=== PATIENT | male | born 1950 | race Caucasian/White ===

== ENCOUNTER 2017-03-20 03:48 | Inpatient (IN) | payer MEDICARE ==
[~2017-03-20] VITALS: Ht 190.5 cm; Wt 111.6 kg
[~2017-03-20 03:48] MED LIST: 24HOUR ALLERGY10 MG PO; ADVAIR HFA 115-12 GM INH; ASPIR 8181 MG PO; COREG12.5 MG PO; ELIQUIS5 MG PO; FLONASE ALLERG9.9 ML NS; LASIX20 MG PO; LIPITOR10 MG PO; LISINOPRIL10 MG PO; NITROSTAT0.4 MG SL; POTASSIUM CHLO20 ME1 PO; PREDNISONE20 MG PO; PROAIR HFA8.5 GM INH; TORSEMIDE20 MG PO; VASOTEC5 MG PO
[2017-03-20] MEDS ORDERED: PROAIR HFA8.5 GM INH (10:02)
[2017-03-20] MEDS ORDERED: COREG12.5 MG PO (10:08)
--- NOTE | 2017-03-20 20:39 | EKG ---
[facility] [address] [facility] [address] [place], [place] [address] Signed Sinus tachycardia with premature atrial complexes with aberrant conduction Possible Left atrial enlargement Left axis deviation Left bundle branch block Abnormal ECG No previous ECGs available Confirmed by BEHZAD REYNAGA MD ([id number]) on 03/20/2017 8:39:39 PM Electronically Signed By: BEHZAD REYNAGA MD 03/20/17 2039 PATIENT NAME: EUGENE BRAMBILA [facility] Electrocardiogram DATE OF : 50 PHYSICIAN: BEHZAD REYNAGA MD REPORT #: [id number] REPORT IS CONFIDENTIAL AND NOT TO BE RELEASED WITHOUT AUTHORIZATION
[2017-03-22] MEDS ORDERED: POTASSIUM CHLO20 ME1 PO (10:33)
[2017-03-22] MEDS ORDERED: TORSEMIDE20 MG PO (10:34)
[2017-09-05] MEDS ORDERED: ENTRESTO 24 MG1 EACH PO (11:44)
== END 2017-03-22 10:50 | disposition home or self-care (01) | DRG 291 ==
LOC: ED 03:48 → MS 03:58
PROVIDERS: ADMIT Internal Medicine
DX: I13.0 Hypertensive heart and chronic kidney disease with heart failure and stage 1 through stage 4 chronic kidney disease, or unspecified chronic kidney disease (principal); I50.23 Acute on chronic systolic (congestive) heart failure; J96.01 Acute respiratory failure with hypoxia; N18.3 Chronic kidney disease, stage 3 (moderate); I25.10 Atherosclerotic heart disease of native coronary artery without angina pectoris; J44.9 Chronic obstructive pulmonary disease, unspecified; I48.0 Paroxysmal atrial fibrillation; R59.0 Localized enlarged lymph nodes; E78.5 Hyperlipidemia, unspecified; J30.89 Other allergic rhinitis; Z86.711 Personal history of pulmonary embolism; Z79.82 Long term (current) use of aspirin; Z88.8 Allergy status to other drugs, medicaments and biological substances; Z87.891 Personal history of nicotine dependence; Z95.1 Presence of aortocoronary bypass graft; Z91.010 Allergy to peanuts; Z79.899 Other long term (current) drug therapy; Z79.51 Long term (current) use of inhaled steroids
CPT/HCPCS: 36415; 71010; 71260; 80048; 80053; 80069; 83735; 83880; 84484; 85025; 93005; 93010; 94640; 94760; 94762; Q9967

== ENCOUNTER 2017-03-23 10:28 | Observation (INO) | payer MEDICARE ==
[~2017-03-23] VITALS: Ht 190.5 cm; Wt 107.8 kg
--- NOTE | 2017-03-23 13:55 | NUR ---
ULTRASOUND IN THE ROOM FOR AN ECHO AT THIS TIME, PATIENT GIVEN SCHEDULED LASIX AND KCL AT THIS TIME. LUNCH ORDERED.
--- NOTE | 2017-03-23 14:40 | NUR ---
PATIENT UP TO THE SIDE OF THE BED EATING HIS LUNCH, PATIENT SATURATIONS ON RA 95% BUT C/O SOB. PATIENT DENIES ANY PAIN AT THIS TIME.
--- NOTE | 2017-03-23 15:31 | NUR ---
tele #1 remains on the patient at this time. patient resting in bed with hob slightly elevated.
--- NOTE | 2017-03-23 16:20 | NUR ---
PATIENT RESTING WITH EYES CLOSED, NO S/S OF RESPIRATORY DISTRESS.
--- NOTE | 2017-03-23 17:23 | NUR ---
MED REC COMPLETE--READMIT
--- NOTE | 2017-03-23 18:39 | NUR ---
PATIENT UP TO THE BATHROOM TO VOID, 1600MLS EMPTIED OF CLEAR YELLOW URINE. PATIENT AMBULATED TO THE NURSES STATION AND BACK ON RA WITHOUT ANY SHORTNESS OF BREATH
--- NOTE | 2017-03-23 19:36 | NUR ---
RECIVED REPORT FROM DAY SHIFT RN. PATIENT IS RESTINGI N BED WITH EYES CLOSED. BREATHING IS EVEN AND UNLABORED, RR 17. CALL LIGHT IN REACH.
--- NOTE | 2017-03-23 20:27 | NUR ---
PATIENT ASSESMENT COMPLETED. PATIENT DENIES ANY PAIN OR SOB. PATIENTS EVENING MEDICATIONS GIVEN PER ORDER. PATIENT EDUCATED ON HIS FLUID RESTRICTION. PATIENT EXPRESSES IRRITATION WITH FLUID RESTRICTION. PATIENT DOES COMPLY. PATIENT IS ON TELE #1 HR 78 AND NSR. PATIENT DENIES ANY FURTEHR NEEDS. PATIENT IS INDEPENDENT IN THE ROOM AND IS STEADY ON HIS FEET. CALL LIGHT IS WITHIN REACH.
--- NOTE | 2017-03-23 20:37 | EKG ---
[facility] [address] [facility] [place] [address] Signed Sinus rhythm with occasional premature ventricular complexes Possible Left atrial enlargement Left axis deviation Nonspecific intraventricular conduction delay T wave abnormality, consider lateral ischemia Abnormal ECG When compared with ECG of 20-MAR-2017 04:02, premature ventricular complexes are now present aberrant conduction is no longer present Confirmed by BEHZAD REYNAGA MD ([id number]) on 03/23/2017 8:37:26 PM Electronically Signed By: BEHZAD REYNAGA MD 03/23/17 2037 PATIENT NAME: EUGENE BRAMBILA [facility] Electrocardiogram DATE OF : 50 PHYSICIAN: BEHZAD REYNAGA MD REPORT #: [id number] REPORT IS CONFIDENTIAL AND NOT TO BE RELEASED WITHOUT AUTHORIZATION
--- NOTE | 2017-03-23 21:13 | NUR ---
PATIENT IS UP AMBULATING IN THE HALLWAY. PATIENT DENIES ANY SOB. PATIENT WAS BALE TO AMBULATE X2 LAPS. PATIENT IS NOW BACK IN BED WATCHING TV.
--- NOTE | 2017-03-23 23:12 | NUR ---
PATIENT IS RESTING IN BED WATCHING TV. PATIENT DENIES ANY NEEDS AT THIS TIME. TELE #1 NSR, HR 84. CALL LIGHT IS WITHIN REACH.
--- NOTE | 2017-03-24 00:24 | NUR ---
PATIENT IS RESTING IN BED WITH EYES CLOSED, RR 18. PATIENT IS ON TELE #1 HR 73, NSR. CALL LIGHT IN REACH.
--- NOTE | 2017-03-24 02:11 | NUR ---
PATIENT UP AMBULATING IN THE HALLWAY. PATIENT WAS ABLE TO COMPLETED X3 LAPS. PATIENT DENIES ANY SOB. PATIENT REMAINS ON TELE #1 HR 80, NSR. PATIENT GIVEN PUDDING PER REQUEST. PATIENT IS NOW BACK IN BED RESTING AND WATCHING TV.
--- NOTE | 2017-03-24 04:45 | NUR ---
PATIENT IS RESTING IN BED WITH EYES CLSOED. BREATHING IS EVEN AND UNLABORED, RR 17. PATIENT IS ON TELE #1, NSR HR 73
--- NOTE | 2017-03-24 05:26 | NUR ---
PATIENT CALLED AND REQUESTED WATER. PATIENT BROUGHT 150ML BY SAW SUPERINTENDENT. PATIENT STATES "I WOULD LIKE A FULL GLASS OF WATER" PATIENT EDUCATED BY SAW SUPERINTENDENT THAT HE IS ON A FLUID RESTRICTION. PATIENT STATES "I HAVE NOT HAD ANY WATER SINCE MIDNIGHT" SAW SUPERINTENDENT NOTIFIED THAT PATIENT HS DESCREPANCIE INTAKE OF WATER. PATIENT EDUCATED ON HIS FLUID RESTRICTION. PATIENT STATES "I HAVE NOT HAD ANY WATER SINCE MIDINIGHT" PATIENT HAS CONSUMED 150ML SINCE MIDINIGHT AND SAW SUPERINTENDENT BROUGHT PATIENT 150ML, BRINGING HIS TOTAL TO 300ML SINCE MIDNIGHT. PATIENT DISAGREES. PATIENT IS NOW UPSET AND STATES "YOU ARE A DAMN LIAR, YOU NEVER BROUGHT ME WATER AND YOU TOOK AN HOUR TO GET ME MY PUDDING EARLIER" EXPLAINED TO THE PATIENT THAT HE WAS BROUGHT 150ML EARLIER AND THAT I NO NOT HAVE KEYS TO THE KITCHEN TO GET PUDDING ONLY THE AIRPLANE COVER MAKER HAS KEYS. PATIENT ONCE AGAIN STATES "YOU ARE A DAMN LIAR, I WANT YOU TO DO THINGS THE RIGHT WAY" PATIENT OFFERED MORE WATER BUT EDUCATED ON THE FACT THAT HE IS ONLY ALLOWED 1500 THROUGHOUT THE DAY. PATIENT STATES "JUST GET OUT" APOLOGIZED TO PATIENT THAT HE FEELS THIS WAY.
--- NOTE | 2017-03-24 05:46 | NUR ---
PATIENT RESTED ON AND OFF THROUGHTOUT THE SHIFT. PATIENT DENIED ANY PAIN OR SOB. PATIENT AMBUALTED THE HALLWAYS MULTIPLE TIMES THROUGHTOUT THE NIGHT WITH NO COMPLAINTS OF SOB. PATIENT IS INDEPENDENT IN THE ROOM AND THE HALLWAYS AND IS STEADY ON HIS FEET. JO IS ON TELE #1 AND HAS REMAIND IN NSR, HR IN THE 80'S. PATIENT IS ON A CARDIAC DIET AND IS TOLERATING IT WELL. PATIENT IS ON A 1500ML FLUID RESTRICTION AND IS NON COMPLAINT AND WHEN EDUCATED ON RESTRICTION BECOMES AGITATED. PATIENT IS AAOX3. PATIENT IS SL.
--- NOTE | 2017-03-24 06:37 | NUR ---
PATIENTS VITALS TAKEN AND RECORDED. PATIENTS DAILY WEIGHT TAKEN AND RECORDED. PATIENT IS STILL UPSET ABOUT FLUID RESTRICTION. PATIENT DENIES ANY NEEDS AT THIS TIME. CALL LIGHT IN REACH.
--- NOTE | 2017-03-24 07:00 | NUR ---
BEDSIDE HANDOFF REPORT RECEIVED FROM DIRECTOR CLIENT RN. PT RESTING IN BED. PT REQUESTING INCREASED ORAL FLUIDS, DISCUSSED FLUID RESTRICTION WITH PT. PT DENIES NEEDS AT THIS TIME.
--- NOTE | 2017-03-24 08:30 | NUR ---
PT SITTING ON EDGE OF BED. PT LUNG SOUNDS CLEAR, ON ROOM AIR, PT STATES BRETAHING HAS IMPROVED. PT HR IRREGULAR. PT BOWEL TONES ACTIVE, DENIES NAUSEA, TOLERATING CARDIAC DIET. PT LEGS WITH TRACE EDEMA, PULSES STRONG. PT DENIES PAIN. PT INDEPENDENT IN ROOM AND NOGUERA, VOIDING QS. PT GIVEN IV LASIX 80 MG. PT EDUCATION ON FLUID RESTRICTION, PROVIDED WITH 200 ML WATER FOR AM FREE WATER. PT REQUESTING TO SHOWER. DISCUSSED PLAN OF CARE WITH PT.
--- NOTE | 2017-03-24 10:16 | NUR ---
PT HAS SHOWERED AND IS NOW RESTING IN BED TRYING TO NAP. PT'S BLOOD PRESSURE WAS LOW, NURSE AWARE
--- NOTE | 2017-03-24 11:00 | NUR ---
PT BLOOD PRESSURE 97/64, HR 77, PT COMPLAINT OF FEELING LIGHTHEADED, RESTING IN BED. MD NOTIFIED, ORDER TO CONTINUE TO MONITOR AND HAVE PT CONTINUE RESTING.
--- NOTE | 2017-03-24 11:18 | NUR ---
PT REQUESTING WATER OR SODA, HAS MET FREE WATER LIMIT FOR AM, DISCUSSED WITH PT. PT COMPLAINT OF HYPOTENSION, DISCUSSED AND ENCOURAGED PT TO REST IN BED. PT PROVIDED WITH HARD CANDY.
--- NOTE | 2017-03-24 14:23 | NUR ---
PT IS LYING IN BED RESTING WITH EYES CLOSED, RESPERATIONS EVEN. PT HDRANK HIS 300ML WITH LUNCH AND HAD HIS 200ML OF FREE WATER. PT CAN HAVE NO MORE FLUIDS UNTIL DINNER.
--- NOTE | 2017-03-24 14:30 | NUR ---
ASSUMED CARE. REPORT RECEIVED FROM RODRIGO HO. PT SITTING ON EDGE OF BED LOOKING AT PRINT OUT OF VITAL SIGNS. TALKED WITH PT REGARDING FLUID RESTRICTION AND REASON FOR IT. PT DISAGREES WITH PLAN OF CARE. STATES FEELS DEHYDRATED. RN ASSURES PT THAT MD MONITORING HYDRATION STATUS. PT GIVEN SHERBET PER REQUEST. DENIES NEEDS AT THIS TIME. CALL LIGHT IN REACH.
--- NOTE | 2017-03-24 17:26 | NUR ---
PT INDEPENDANT IN ROOM/HALLS. TELE DC'D. CONTINUOUS EDUCATION AND REINFORCEMENT ON FLUID RESTRICTION. SL'D. LASIX. LABS IMPROVING.
--- NOTE | 2017-03-24 18:17 | NUR ---
PT WOKE UP FOR VITALS THEN FELL BACK ASLEEP, RESPERATIONS EVEN
--- NOTE | 2017-03-24 20:00 | NUR ---
RECEIVED REPORT AT 1900. PT WAS IN THE BATHROOM.
--- NOTE | 2017-03-24 22:00 | NUR ---
ALL LOBES ARE CLEAR. PT STATED THAT HE IS FEELING BETTER OVERALL. PT HAS BEEN WALKING THE HALLWAY WITHOUT ANY SOB. PT HAD NO ISSUES WITH HIS FLUID RESTRICTION. NO LOWER EXTREMETY EDEMA NOTED AT THIS TIME. PT HAS A LOT OF QUESTIONS IN REGARDS TO HIS HEALTH AND HOW TO MANAGE IT. I TOLD HIM TO TALK TO MD REYNAGA ABOUT THE SPECIFICS IN REGARDS TO WEIGHT MANAGEMENT, FLUID INTAKE, BP AND MEDICATION. PT AT THIS TIME IS AWAKE IN HIS ROOM
--- NOTE | 2017-03-25 01:43 | NUR ---
PT IS SLEEPING AT THIS TIME.
--- NOTE | 2017-03-25 03:51 | NUR ---
PT IS AWAKE AND WALKING THE HALLWAY.
--- NOTE | 2017-03-25 05:37 | NUR ---
PT OVERALL HAD A UNEVENTFUL NIGHT. PT SLEPT SOME OF THE NIGHT BUT WAS UP MOST OF THE TIME WALKING THE HALLWAY AND SITTING IN HIS ROOM. V/S WERE WNL. ALL LOBES ARE CLEAR AND PT OVERALL FEELS STRONGER. NO NEW ISSUES NOTED FOR THIS PT
--- NOTE | 2017-03-25 07:30 | NUR ---
PATIENT AWAKE, ALERT AND ORIENTED. PATIENT REQUESTED HER LABS THIS AM, AMMONIA LEVEL WAS 67 THIS AM. GLUCOSE CHECK THIS AM REQUIRED INSULIN, 2 UNITS GIVEN SQ.
--- NOTE | 2017-03-25 08:00 | NUR ---
PATIENT UP AMBULATING IN THE HALLWAY WITH NO C/O SOB. HE REMAINS ON RA WITH NO C/O PAIN. LUNGS ARE CLEAR THIS AM AND EDEMA IS DECREASED IN HIS LEGS. PATIENT AM ASSESSMENT COMPLETE AT THIS TIME.
--- NOTE | 2017-03-25 08:40 | NUR ---
PATIENT SITTING UP IN BED EATING BREAKFAST AT THIS TIME. NO OTHER REQUESTS.
[2017-03-25] MEDS ORDERED: LISINOPRIL10 MG PO (10:10)
--- NOTE | 2017-03-25 10:23 | NUR ---
DOCTOR REYNAGA IN THE ROOM TO SEE THE PATIENT, IV IN THE LEFT WRIST DC'D TIP INTACT NO REDDNESS OR SWELLING NOTED.
[2017-09-05] MEDS ORDERED: ENTRESTO 24 MG1 EACH PO (11:44)
== END 2017-03-25 10:35 | disposition home or self-care (01) ==
LOC: ED 10:28 → MS 10:39
PROVIDERS: ADMIT Internal Medicine
DX: I50.23 Acute on chronic systolic (congestive) heart failure (principal); I25.10 Atherosclerotic heart disease of native coronary artery without angina pectoris; Z95.1 Presence of aortocoronary bypass graft; I10 Essential (primary) hypertension; I48.0 Paroxysmal atrial fibrillation; J44.9 Chronic obstructive pulmonary disease, unspecified; R59.0 Localized enlarged lymph nodes; Z88.8 Allergy status to other drugs, medicaments and biological substances; Z86.711 Personal history of pulmonary embolism; Z79.82 Long term (current) use of aspirin; Z79.51 Long term (current) use of inhaled steroids; Z79.899 Other long term (current) drug therapy
CPT/HCPCS: 36415; 71020; 80048; 80053; 83735; 83880; 84484; 85025; 87070; 87077; 87186; 87205; 93005; 93010; 93306; 94640; 96372; 96374; 96376; 99285; G0378; J1650

== ENCOUNTER 2017-07-04 14:04 | Emergency (ER) | payer MEDICARE ==
[~2017-07-04] VITALS: Ht 190.5 cm; Wt 107.9 kg
[2017-07-04] MEDS ORDERED: DILT-XR120 MG PO (17:18)
[2017-09-05] MEDS ORDERED: ENTRESTO 24 MG1 EACH PO (11:44)
== END 2017-07-04 17:31 | disposition home or self-care (01) ==
LOC: ED 14:04
DX: R07.89 Other chest pain (principal); R00.0 Tachycardia, unspecified; J44.9 Chronic obstructive pulmonary disease, unspecified; I50.9 Heart failure, unspecified; Z88.8 Allergy status to other drugs, medicaments and biological substances; Z91.010 Allergy to peanuts; Z79.899 Other long term (current) drug therapy; Z79.82 Long term (current) use of aspirin
CPT/HCPCS: 71260; 80053; 81001; 84484; 85025; 99284; Q9967

== ENCOUNTER 2017-08-20 09:17 | Inpatient (IN) | payer MEDICARE ==
[~2017-08-20] VITALS: Ht 190.5 cm; Wt 114.3 kg
[~2017-08-20 09:17] MED LIST changes: +DILT-XR120 MG PO
[2017-08-20] MEDS ORDERED: ZITHROMAX500 MG PO (09:31)
[2017-08-20] MEDS ORDERED: ENTRESTO 24 MG1 EACH PO (09:31)
--- NOTE | 2017-08-21 14:26 | EKG ---
[facility] [address] [place] [address] Signed Supraventricular tachycardia possibly atrial flutter with 2:1 AV block. Nonspecific intraventricular block T wave abnormality, consider lateral ischemia Abnormal ECG When compared with ECG of 23-MAR-2017 10:38, Wide QRS tachycardia has replaced Sinus rhythm Vent. rate has increased BY 62 BPM Confirmed by BEHZAD REYNAGA MD ([id number]) on 08/21/2017 2:26:10 PM Electronically Signed By: BEHZAD REYNAGA MD 08/21/17 1426 PATIENT NAME: EUGENE BRAMBILA Electrocardiogram DATE OF : 50 PHYSICIAN: BEHZAD REYNAGA MD REPORT #: [id number] REPORT IS CONFIDENTIAL AND NOT TO BE RELEASED WITHOUT AUTHORIZATION
--- NOTE | 2017-08-21 14:26 | EKG ---
[facility] [address] [place], [place] [address] Signed Atrial flutter with variable AV block Left axis deviation Nonspecific ST and T wave abnormality Abnormal ECG When compared with ECG of 20-AUG-2017 09:30, (Unconfirmed) Atrial flutter has replaced Wide QRS tachycardia Confirmed by BEHZAD REYNAGA MD ([id number]) on 08/21/2017 2:26:25 PM Electronically Signed By: BEHZAD REYNAGA MD 08/21/17 1426 PATIENT NAME: BRAMBILA,EUGENEMONSTER MENDEZ Electrocardiogram DATE OF : 50 PHYSICIAN: BEHZAD REYNAGA MD REPORT #: [id number] REPORT IS CONFIDENTIAL AND NOT TO BE RELEASED WITHOUT AUTHORIZATION
[2017-08-22] MEDS ORDERED: PRINIVIL10 MG PO (10:11)
[2017-08-22] MEDS ORDERED: KLOR-CON M2020 MEQ PO (10:13)
[2017-08-22] MEDS ORDERED: DEMADEX20 MG PO (11:18)
[2017-08-25] MEDS ORDERED: AMIODARONE HCL100 MG PO (21:37)
[2017-08-25] MEDS ORDERED: LIPITOR10 MG PO (21:38)
[2017-08-25] MEDS ORDERED: DIGOX125 MCG PO (21:38)
[2017-08-25] MEDS ORDERED: KLOR-CON M2020 MEQ PO (21:39)
[2017-08-26] MEDS ORDERED: WARFARIN SODIUM3 MG PO (11:18)
[2017-09-05] MEDS ORDERED: ENTRESTO 24 MG1 EACH PO (11:44)
== END 2017-08-26 13:02 | disposition home or self-care (01) | DRG 291 ==
LOC: ED 09:17 → CCU 11:41 → MS 08-21 15:15 → CCU 08-23 12:30 → MS 08-25 13:05
PROVIDERS: ADMIT Internal Medicine
DX: I13.0 Hypertensive heart and chronic kidney disease with heart failure and stage 1 through stage 4 chronic kidney disease, or unspecified chronic kidney disease (principal); I50.43 Acute on chronic combined systolic (congestive) and diastolic (congestive) heart failure; I48.92 Unspecified atrial flutter; E78.5 Hyperlipidemia, unspecified; I25.10 Atherosclerotic heart disease of native coronary artery without angina pectoris; I25.5 Ischemic cardiomyopathy; I27.20 Pulmonary hypertension, unspecified; N18.3 Chronic kidney disease, stage 3 (moderate); I08.1 Rheumatic disorders of both mitral and tricuspid valves; Z95.1 Presence of aortocoronary bypass graft
CPT/HCPCS: 36415; 71010; 80048; 80053; 80069; 80162; 83735; 83880; 84484; 85025; 85610; 93005; 93010; 94667; J0282; J1160; J1650; J2405

== ENCOUNTER 2017-09-02 09:19 | Observation (INO) | payer MEDICARE ==
[~2017-09-02] VITALS: Ht 190.5 cm; Wt 113.0 kg
[~2017-09-02 09:19] MED LIST changes: +AMIODARONE HCL100 MG PO; +DEMADEX20 MG PO; +DIGOX125 MCG PO; +ENTRESTO 24 MG1 EACH PO; +KLOR-CON M2020 MEQ PO; +PRINIVIL10 MG PO; +WARFARIN SODIUM3 MG PO; +ZITHROMAX500 MG PO
[2017-09-02] MEDS ORDERED: AMIODARONE HCL100 MG PO (09:29)
--- OUTSIDE RECORDS SUMMARY | 2017-09-02 09:42 | XMS | Clinical Summary ---
Demographics + + + | Address | [address] | | | [place] [address] | + + + | Home Phone | | + + + | Preferred Language | Unknown | + + + | Marital Status | Single | + + + | Yarsani Affiliation | BIG | + + + | Race | White | + + + | Ethnic Group | Not or | + + + Author + + + | Author | [facility] | + + + | Organization | [facility] | + + + | Address | Unknown | + + + | Phone | Unavailable | + + + Support +------+ +---------+ + | Name | Relationship | Address | Phone | +------+ +---------+ + ECON | Unknown | | +------+ +---------+ + Care Team Providers + +------+-------+ | Care Recreation Aide Name | Role | Phone | + +------+-------+ | Jaki Starks MD | PP | tel | + +------+-------+ Source Comments [facility] is fully live on both [facility] and [facility] Allergies + + + + + + | Active Allergy | Reactions | Severity | Noted | Comments | | | | | Date | | + + + + + + | Azithromycin | Hives | | 07/15/20 | | | | | | 14 | | + + + + + + | Carvedilol | Throat Swelling / | | 07/25/20 | Worsening HF | | | Closing | | 17 | | + + + + + + | Metoprolol | Unknown | | 07/25/20 | | | | | | 17 | | + + + + + + | Peanut | Anaphylaxis | High | 07/15/20 | | | | | | 14 | | + + + + + + | Spironolactone | Muscle Weakness | | 07/15/20 | | | | | | 14 | | + + + + + + | Medical Supply, | Pruritus | | 08/06/20 | blisters | | Miscellaneous | | | 15 | | + + + + + + Current Medications + + +--------+---------+------+------+-------+ | Prescription | Sig. | Disp. | Refills | Star | End | Statu | | | | | | t | Date | s | | | | | | Date | | | + + +--------+---------+------+------+-------+ | nitroglycerin 0.4 | Place 0.4 mg under | | | | | Activ | | mg sublingual | tongue every five | | | | | e | | tablet, sublingual | minutes as needed | | | | | | | | for chest pain. | | | | | | | | Place under tongue | | | | | | | | and allow to | | | | | | | | dissolve. | | | | | | | | Administer every 5 | | | | | | | | minutes, max of 3 | | | | | | | | doses in 15 minutes. | | | | | | + + +--------+---------+------+------+-------+ | aspirin chewable | Take 1 tablet by | 90 | 3 | 11/2 | | Activ | | 81 mg oral | mouth once daily. | tablet | | /20 | | e | | tablet,chewable | | | | 14 | | | + + +--------+---------+------+------+-------+ | atorvastatin 10 mg | Take 1 tablet by | 90 | 3 | /2 | | Activ | | oral tablet | mouth once daily. | tablet | | 0/20 | | e | | | | | | 16 | | | + + +--------+---------+------+------+-------+ | lisinopril 10 mg | Take 10 mg by mouth | | | | | Activ | | oral tablet | two times daily. | | | | | e | + + +--------+---------+------+------+-------+ | potassium chloride | Take 20 mEq by mouth | | | | | Activ | | 20 mEq oral tablet | once daily. See | | | | | e | | extended release | torsemide | | | | | | | | instructions. | | | | | | + + +--------+---------+------+------+-------+ | fluticasone 50 | Instill in nose. | | | | | Activ | | mcg/actuation nasal | | | | | | e | | spray,suspension | | | | | | | + + +--------+---------+------+------+-------+ | torsemide 20 mg | Take by mouth. | | | | | Activ | | oral tablet | Taking 20mg daily | | | | | e | | | along with 10 meq of | | | | | | | | potassium. If | | | | | | | | edema, then he goes | | | | | | | | to twice a day. | | | | | | + + +--------+---------+------+------+-------+ | dilTIAZem CD 24 | Take 120 mg by mouth | | | | | Activ | | hour release 120 mg | once daily | | | | | e | | oral | | | | | | | | capsule,extended | | | | | | | | release 24hr | | | | | | | + + +--------+---------+------+------+-------+ Active Problems + + | Patient Care Coordination Note | + + | 07/21/2014I spoke with Mr. Joseph about his AD, he has with him, I have copied and is | | being sent to scan for chart. Balaji Joseph is his decision maker surrogate. She is | | his daughter. He will be going home with [facility] for 30 days at discharge.Yashira | | [phone] | |He will be going home with [facility] for 30 days at discharge. | | | |Yashira Aragon | [phone] | + + + + + | Problem | Noted Date | + + + | [employer] SQ ICD | 03/23/2015 | + + + | Ischemic cardiomyopathy | 07/19/2014 | + + + | Chronic systolic heart failure (HCC) | 07/15/2014 | + + + | Heart failure (HCC) | 07/15/2014 | + + + + + | Overview: ICD10 | + + + + + | HTN (hypertension) | 07/15/2014 | + + + | HLD (hyperlipidemia) | 07/15/2014 | + + + | Coronary atherosclerosis | 08/12/2013 | + + + | Pulmonary emphysema (HCC) | 08/12/2013 | + + + | Solitary pulmonary nodule | 08/12/2013 | + + + | Mitral valve disorder | 08/12/2013 | + + + | Postsurgical aortocoronary bypass status | 08/12/2013 | + + + | Chronic combined systolic and diastolic heart failure (HCC) | 06/21/2012 | + + + | Chronic airway obstruction (HCC) | 06/21/2012 | + + + | Essential hypertension | 06/21/2012 | + + + | Hyperlipidemia | 06/21/2012 | + + + | Chronic ischemic heart disease | 06/21/2012 | + + + Encounters +--------+ + + + + | Date | Type | Specialty | Care Team | Description | +--------+ + + + + | 09/01/ | Abstract | | Gissell Orellana MD | | | 2018 | | | | | +--------+ + + + + | 08/30/ | Telephone | | Gissell Orellana MD | Other (sooner appt) | | 2017 | | | | | +--------+ + + + + | 08/22/ | Telephone | | Gissell Orellana MD | | | 2016 | | | | | +--------+ + + + + | 08/09/ | Telephone | | Gissell Orellana MD | Follow-up encounter | | 2016 | | | | | +--------+ + + + + | 07/25/ | Office | | Gissell Orellana MD | Chronic systolic | | 2016 | Visit | | | heart failure (HCC) | | | | | | (Primary Dx); | | | | | | Coronary artery | | | | | | disease involving | | | | | | elim ira coronary | | | | | | artery of elim ira | | | | | | heart without angina | | | | | | pectoris; At risk | | | | | | for sudden cardiac | | | | | | | +--------+ + + + + from Last 3 Months Family History + + +------+ + | Medical History | Relation | Name | Comments | + + +------+ + | Heart Disease | Father | | angina in his 40s | + + +------+ + | Heart Disease | Mother | | carotid artery disease | + + +------+ + | Heart Disease | Sister | | | + + +------+ + + +------+--------+ + | Relation | Name | Status | Comments | + +------+--------+ + | Father | | | | + +------+--------+ + | Mother | | | | + +------+--------+ + | Sister | | | | + +------+--------+ + Social History + + + +--------+ + | Tobacco Use | Types | Packs/Day | Years | Date | | | | | Used | | + + + +--------+ + | Former Smoker | Cigarettes | 2 | 40 | Quit: 05/18/2011 | + + + +--------+ + + +---+---+---+ | Smokeless Tobacco: | | | | | Never Used | | | | + +---+---+---+ + + +---------+ + | Alcohol Use | Drinks/We | oz/Week | Comments | | | ek | | | + + +---------+ + | No | 0 | 0.0 | | | | Standard | | | | | drinks or | | | | | | | | | | equivalen | | | | | t | | | + + +---------+ + + + + | Sex Assigned at | Date Recorded | | | | + + + | Not on file | | + + + Last Filed Vital Signs + + + + | Vital Sign | Reading | Time Taken | + + + + | Blood Pressure | 159/92 | 07/25/2017 11:14 AM PST | + + + + | Pulse | 96 | 07/25/2017 11:14 AM PST | + + + + | Temperature | 36.9 C (98.5 F) | 07/25/2017 11:14 AM PST | + + + + | Respiratory Rate | 20 | 2015 9:00 PM PST | + + + + | Oxygen Saturation | 98% | 07/25/2017 11:14 AM PST | + + + + | Inhaled Oxygen | - | - | | Concentration | | | + + + + | Weight | 112.9 kg (249 lb) | 07/25/2017 11:14 AM PST | + + + + | Height | 190.5 cm (6' 3") | 07/25/2017 11:14 AM PST | + + + + | Body Mass Index | 31.12 | 07/25/2017 11:14 AM PST | + + + + Plan of Treatment +--------+---------+ + + + | Date | Type | Specialty | Care Team | Description | +--------+---------+ + + + | 09/04/ | Office | | | | | 2017 | Visit | | | | +--------+---------+ + + + + + + + + | Health Maintenance | Due Date | Last Done | Comments | + + + + + | INFLUENZA VACCINE | | | | | (FLU SHOT) | 7 | | | + + + + + Results Not on filefrom Last 3 Months
--- OUTSIDE RECORDS SUMMARY | 2017-09-02 09:42 | XMS | Encounter Summary ---
Demographics + + + | Address | [address] | | | [place] [address] | + + + | Home Phone | | + + + | Preferred Language | Unknown | + + + | Marital Status | Single | + + + | Denominational Affiliation | BIG | + + + | Race | White | + + + | Ethnic Group | Not or | + + + Author + + + | Author | [facility] | + + + | Organization | [facility] | + + + | Address | Unknown | + + + | Phone | Unavailable | + + + Support +------+ +---------+ + | Name | Relationship | Address | Phone | +------+ +---------+ + ECON | Unknown | | +------+ +---------+ + Care Team Providers + +------+-------+ | Care Laboratory Manager Name | Role | Phone | + +------+-------+ | Jaki Starks MD | PCP | tel | + +------+-------+ Encounter Details +--------+ + + + + | Date | Type | Department | Care Team | Description | +--------+ + + + + | 09/01/ | Abstract | Cardiology Cardiac | Gissell Orellana MD | | | 2018 | | Transplant at [facility] | [address] | | | | | [address] | [facility] | | | | | Mailcode: [facility] | [place] [address] | | | | | [facility] | [phone] | | | | | and Healing | | | | | | [place], [place] | | | | | | [address] | | | | | | [phone] | | | +--------+ + + + + Social History + + + +--------+ [...] on file | | + + + as of this encounter Plan of Treatment +--------+---------+ + + + | Date | Type | Specialty | Care Team | Description | +--------+---------+ + + + | 09/04/ | Office | Heart Transplant | | | | 2018 | Visit | | | | +--------+---------+ + + + as of this encounter Visit Diagnoses Not on filein this encounter"
--- OUTSIDE RECORDS SUMMARY | 2017-09-02 10:23 | XMS | Encounter Summary ---
Demographics + + + | Address | [address] | | | [place] [address] | + + + | Home Phone | | + + + | Preferred Language | Unknown | + + + | Marital Status | Single | + + + | Synagogue Affiliation | BIG | + + + | Race | White | + + + | Ethnic Group | Not or | + + + Author + + + | Author | [facility] | + + + | Organization | [facility] | + + + | Address | Unknown | + + + | Phone | Unavailable | + + + Support +------+ +---------+ + | Name | Relationship | Address | Phone | +------+ +---------+ + ECON | Unknown | | +------+ +---------+ + Care Team Providers + +------+-------+ | Care Data Coder Operator Name | Role | Phone | + +------+-------+ | Jaki Starks MD | PCP | tel | + +------+-------+ Reason for Visit + + + | Reason | Comments | + + + | Follow-up encounter | | + + + Encounter Details +--------+ + + + + | Date | Type | Department | Care Team | Description | +--------+ + + + + | 08/09/ | Telephone | Cardiology Cardiac | Gissell Orellana MD | Follow-up encounter | | 2017 | | Transplant at [facility] | [address] | | | | | [address] | [facility], | | | | | Mailcode: [address] | [place] [address] | | | | | [facility] | [phone] | | | | | and | | | | | | Floor [place], [place] | | | | | | [address] | | | | | | [phone] | | | +--------+ + + + [...]
--- OUTSIDE RECORDS SUMMARY | 2017-09-02 10:23 | XMS | Encounter Summary ---
Demographics + + + | Address | [address] | | | [place] [address] | + + + | Home Phone | | + + + | Preferred Language | Unknown | + + + | Marital Status | Single | + + + | Congregational Affiliation | BIG | + + + [...] Care Team Providers + +------+-------+ | Care Merchandise For Resale Purchasing Agent Name | Role | Phone | + +------+-------+ | Jaki Starks MD | PCP | tel | + +------+-------+ Reason for Visit + + + | Reason | Comments | + + + | Follow-up visit | | + + + Consultation (Routine) +--------+--------+ + + + + | Status | Reason | Specialty | Diagnoses / | Referred By | Referred To | | | | | Procedures | Contact | Contact | +--------+--------+ + + + + | Closed | | Cardiology | Diagnoses | Non-[facility] | Gene Castaneda | | | | | CHF | Epic Minit | MD [address] | | | | | (congestive | | [address] | | | | | heart | | [place], [place] | | | | | failure) | | [address] | | | | | (HCC) | | Phone: | | | | | Procedures | | [phone] | | | | | CONSULT TO | | Fax: | | | | | CARDIOLOGY | | [phone] | +--------+--------+ + + + + Encounter Details +--------+---------+ + + + | Date | Type | Department | Care Team | Description | +--------+---------+ + + + | 07/25/ | Office | Cardiology Cardiac | Gissell Orellana MD | Chronic systolic | | 2017 | Visit | Transplant at [facility] | [address] | heart failure (HCC) | | | | [address] | [facility], | (Primary Dx); | | | | Mailcode: 9A | [place] [address] | Coronary artery | | | | [place] [facility] | [phone] | disease involving | | | | and | | [place] coronary | | | | Floor [place], [place] | | artery of [place] | | | | [address] | | heart without angina | | | | [phone] | | pectoris; At risk | | | | | | for sudden cardiac | | | | | | | +--------+---------+ + + + Social History + + [...] + + + as of this encounter Last Filed Vital Signs + + + [...] + + + | Respiratory Rate | - | - | + + + + | Oxygen [...] AM PST | + + + + in this encounter Instructions Patient Instructions - Gissell Orellana MD - 07/25/2017 11:05 AM PST1. It was great to see yo u today. 2. I would stop the diltiazem. 3. We will keep everything else the same. 4. We will see you when you get back from [facility]. (09/28/17) 5. We will call you in a couple weeks to see how things are going. in this encounter Progress Notes Gissell Orellana MD - 07/25/2017 11:05 AM PSTFormatting of this note may be different from koffi chowdhury. Advanced Heart Failure and Transplantation Follow-up Reason for Consultation: chronic systolic heart failure. Primary care physician: Matthew Rowley Referring pad tufter: Ilana Young Display Progress Note in MyChart: No Reason for visit: Routine HF follow-up Interval History: Mr. Joseph is a 67 year old man with chronic systolic heart failure previously followed in our heart failure clinic here for routine follow-up. He was last seen in our clinic in April at that time we elected to try 3.125 mg po BID of carvedilol in place of a larger dose in consistently. He has not yet started entresto. He also traveled to [facility]. He notes that he tried to carvedilol for the first time when he was in [facility]. He had i ncreased shortness of breath and leg swelling. He notes that his symptoms were so severe he wondered if he had an allergy to the carvedilo l. He stopped the carvedilol and his symptoms improved though it took some time for his marsha a and shortness of breath to improve. He notes that he had a fall while he was there and he thinks he injured his rib. He also notes that he had a higher resting heart rate. Overall after stopping the carvedilol and being in [facility] he feels like he was doing be tter. He was walking long distances in [facility] and felt like his energy was better. On returning home he notes he was seen at the local ED for his rib pain after a fall and gi les his high HR he reports a CT of the chest was done. He notes that he was told he did not have a PE. He reports that he was in normal rhythm. He was started on diltiazem 120 mg ER once a day. He reports that when he started the diltiazem he began to feel worse. He had more edema and shortness of breath and more fatigue. Because of this he has been spacing out the dosing ev barber 2-3 days. He feels worse when he takes the drug and better right before he starts it. [facility]. BP at home 120's. Medications: Current Medication List Name Sig ASPIRIN 81 MG CHEWABLE TABLET Take 1 tablet by mouth once daily. ATORVASTATIN 10 MG TABLET Take 1 tablet by mouth once daily. DILTIAZEM CD 120 MG CAPSULE,EXTENDED RELEASE 24 HR Take 120 mg by mouth once daily FLUTICASONE 50 MCG/ACTUATION NASAL SPRAY,SUSPENSION Instill in nose. LISINOPRIL 10 MG TABLET Take 10 mg by mouth two times daily. NITROGLYCERIN 0.[address] 0.4 mg under tongue every five minutes as need ed for chest pain. Place under tongue and allow to dissolve. Administer every 5 minutes, ma x of 3 doses in 15 minutes. POTASSIUM CHLORIDE ER 20 MEQ TABLET,EXTENDED RELEASE Take 20 mEq by mouth once daily. See t orsemide instructions. TORSEMIDE 20 MG TABLET Take by mouth. Taking 20mg daily along with 10 meq of potassium. I f edema, then he goes to twice a day. Allergies: Allergies Allergen Reactions Peanut Anaphylaxis Azithromycin Hives Spironolactone Muscle Weakness Tape Adherent [Medical Supply, Miscellaneous] Pruritus blisters Review of Systems: Please see history of present illness. Complete 14-point review of stefany butler was otherwise negative. Physical Examination Ht 1.905 m (6' 3"), Wt 112.9 kg (249 lb), BP 159/92, Pulse 96, Temperature 36.9 C (98.5 F), Temperature source Oral, SpO2 98%, BMI 31.12 kg/(m^2). General: well appearing, alert and cooperative HEENT: PERRLA, EOMI. Oropharynx clear without lesion or exudate Neck: Neck supple. No adenopathy. Thyroid symmetric & normal size. JVP is 2 cm above the cl avicle at 70 degrees with positive HJR Respiratory: Percussion normal. Good diaphragmatic excursion. Lungs clear to auscultation b ilaterally Cardiac: PMI displaced. No lifts, heaves, or thrills. Regular rate and rhythm. S1 and S2 ar e normal. No S3 heard. 2/6 systolic murmurs at the LUSB and apex. No clicks, gallops or rub. Carotid and pedal pulses 2+/2 bilaterally. No arterial bruits. Trace peripheral edema. Abdomen: Nontender to palpation. No hepatomegaly, no masses, aorta not grossly enlarged. Extremities: Extremities normal. No deformities, edema, or skin discoloration. Musculoskeletal: Spine ROM normal. Muscular strength intact. Skin: Skin color, texture, turgor normal. Laboratory Studies: Lab Results Component Value Date NA 138 04/11/2017 K 3.8 04/11/2017 CL 102 04/11/2017 BICARB 27 04/11/2017 BUN 23 04/11/2017 CR 1.40 04/11/2017 GLU 81 04/11/2017 CA 9.1 04/11/2017 AST 19 01/19/2016 ALT 22 01/19/2016 AP 76 01/19/2016 TBILI 0.6 01/19/2016 TP 7.6 01/19/2016 ALB 4.6 01/19/2016 ANIONGAP 14.4 01/19/2016 ANIONALBCOR 3 09/10/2014 Echocardiogram 03/23/2017: 1. The left ventricle is markedly dilated with normal wall thickness and severely impaired systolic function EF 20-25%. 2. Restrictive LV diastolic filling pattern, consistent with elevated LA pressure and sever e dysfunction (grade III). 3. The right ventricle is severely enlarged with severely impaired systolic function. 4. Mitral ring annulloplasty is in place with moderate to severe mitral regurgitation. 5. Moderate to severe tricuspid regurgitation with severe pulmonary hypertension RVSP 66 mm Hg. 6. There is no pericardial effusion. 7. Compared with the findings of the prior study, there has been no significant change. Echocardiogram 02/20/2017: 1. The left ventricle is severely dilated, normal wall thickness and severe impaired systol ic function EF 20-25%. 2. The right ventricle is moderately enlarged with moderately impaired systolic function. 3. Mitral ring annulloplasty is in place with moderate to severe mitral regurgitation. 4. Severe tricuspid regurgitation with severe pulmonary hypertension RVSP 68-71 mmHg. 5. There is no pericardial effusion. Assessment: Mr. Joseph is a 66 year old man with Stage D NYHA Class III chronic systolic heart failure here for follow-up. Active problem list: Chronic systolic heart failure Ischemic cardiomyopathy Coronary artery disease with coronary artery bypass graft surgery 08/11 with GOOD to LAD, S VG to OM and PL. Mitral regurgitation with mitral valve repair 08/11 at time of CABG SC ICD placed but subsequently explanted 07/12, declined subsequent ICD Paroxysmal atrial fibrillation, not on anticoagulation, declined in the past History of PE Report of mediastinal lymphadenopathy noted to have been diagnosed on CT scan. Plan: 1. Chronic systolic heart failure due to ischemic cardiomyopathy; Stage C NYHA Class III: Bria Joseph has persistent elevation of his filling pressures with a resting tachycardia mino rning for worsening HF. We will request records from hist most recent ED visit in [place] to confirm he was in NSR. We will stop diltiazem given his severe LV dysfunction and HF and worsening symptoms with this medication. We discussed that his sinus tachycardia is likely c ompensatory for his low SV and serves to maintain his CO. He is intolerant to BB given his w orsening HF. We will monitor his symptoms off AV lena blocking agents and see how he is doi ng in 1 week. Given he is leaving again for [facility] and won't have ability for monitoring we will hold on consideration of transitioning to entresto. His filling pressures are eleva kari today, this may improve off of diltiazem. He adjusted his diuretics based on his symptom s and we discussed taking an extra dose today. We will see Mr. Joseph back at the beginning of September when he returns from [facility]. We have discussed that he is not a candidate fo r LVAD given his RV function and in addition it does not align with his symptoms. We discuss ed progressive heart failure and will continue to try to optimize his HF therapy for improve d symptoms and quality of life. 2. Risk for sudden cardiac : ICD has been deferred after SC-ICD explant given his pref erence. 3. Coronary artery disease: Remains on medical therapy. 4. Follow-up: We will request recent ED records for review and plan follow-up in September w hen he returns from [facility]. Gissell Orellana MD MPH Diversity Internsenior cytogenetic technologist Heart Failure and Heart Transplantation Division of Cardiovascular Medicine [facility] this encounter Plan of Treatment +--------+---------+ + + + | Date | Type | Specialty | Care Team | Description | +--------+---------+ + + + | 09/04/ | Office | Heart Transplant | | | | 2017 | Visit | | | | +--------+---------+ + + + as of this encounter Visit Diagnoses + + | Diagnosis | + + | Chronic systolic heart failure (HCC) - Primary | + + | Chronic systolic heart failure | + + | Coronary artery disease involving [place] coronary artery of [place] heart without angina | | pectoris | + + | At risk for sudden cardiac | + + | Other specified conditions influencing health status | + +
--- OUTSIDE RECORDS SUMMARY | 2017-09-02 10:23 | XMS | Encounter Summary ---
Demographics + + + | Address | [address] | | | [place] [address] | + + + | Home Phone | | + + + | Preferred Language | Unknown | + + + | Marital Status | Single | + + + | Hindu Affiliation | BIG | + + + | Race | White | + + + | Ethnic Group | Not or | + + + Author + + + | Author | [facility] | + + + | Organization | [facility] | + + + | Address | Unknown | + + + | Phone | Unavailable | + + + Support +------+ +---------+ + | Name | Relationship | Address | Phone | +------+ +---------+ + ECON | Unknown | | +------+ +---------+ + Care Team Providers + +------+-------+ | Care Nutrition Services Aide Name | Role | Phone | + +------+-------+ | Jaki Starks MD | PCP | tel | + +------+-------+ Reason for Visit +--------+ + | Reason | Comments | +--------+ + | Other | sooner appt | +--------+ + Encounter Details +--------+ + + + + | Date | Type | Department | Care Team | Description | +--------+ + + + + | 08/30/ | Telephone | Cardiology Cardiac | Gissell Orellana MD | Other (sooner appt) | | 2018 | | Transplant at [facility] | [address] | | | | | [address] | [facility], | | | | | Mailcode: [address] | [place] [address] | | | | | [facility] | [phone] | | | | | and Healing | | | | | | Floor [place], [place] | | | | | | [address] | | | | | | [phone] | | | +--------+ + + + [...]
--- NOTE | 2017-09-02 11:45 | NUR ---
PT RECEIEVD FROM ED. PT DENIES PAIN. PT ON ROOM AIR, LUNG SOUNDS CLEAR, PT DENIES SOB. PT HR 96 RADIAL. BOWEL TONES ACTIVE, DENIES NAUSEA. PT TELEMETRY #3. CMS INTACT, EDEMA TO BLE 1-2+. IV SALINE LOCKED, IV LASIX GIVEN, BEDSIDE URINAL PROVIDED. ADMISSION INTAKE COMPLETED. PT ASSISTED WITH ORDERING LUNCH. PT DENIES OTHER NEEDS AT THIS TIME.
--- NOTE | 2017-09-02 14:27 | NUR ---
PT W2AS IN BED WE DID VITAL SIGNS, AND HE WAS ON THE PHONE TALKING TO SOMEONE, HE LET US DO THE VITALS AND DIDNT NEED ANY OTHER CARE.
--- NOTE | 2017-09-02 14:30 | NUR ---
PT SITTING IN CHAIR. PT LUNG SOUNDS CLEAR, DENIES SOB, ON ROOM AIR. PT TELEMETRY #3 HR 80-90. EDEMA TO BLE UNCHANGED. PT WITH URINE OUTPUT QS. PT VOICING FRUSTRATION ABOUT CURRENT HEALTH STATUS, DISCUSSED DISEASE PROCESS WITH PT, THERAPEUTIC COMMUNICATION PROVIDED. PT DENIES OTHER NEEDS AT THIS TIME. DISCUSSED SHOWER WITH PT, PT STATES HE WOULD LIKE TO SHOWER THIS EVENING.
--- NOTE | 2017-09-02 18:04 | NUR ---
PT ADMITTED FOR OBSERVATION. PT ON ROOM AIR, DENIES SOB, LUNG SOUNDS CLEAR. PT UP INDEPENDENT IN ROOM. PT RECEIVED IV LASIX X2, VOIDING QS. TOLERATING CARDIAC DIET. PT WITH 1+ EDEMA TO BLE. TELE #3, A FLUTTER. PT SALINE LOCKED.
--- NOTE | 2017-09-02 20:00 | NUR ---
PATIENT CALLED. WRAPPED IV SITE AND TELE. PATIENT IS INDEPENDENT TO TAKE SHOWER PER NURSE KRYSTLE.
--- NOTE | 2017-09-02 20:55 | NUR ---
PT SHOWERED, TOLERATED WELL, MILD SOB WITH EXERTION NOTED,. CURRENTLY UP IN CHAIR WATCHING TV. TELE INPLACE, NO C/O PAIN, HAS AMBULATED IN ROOM SEVERAL TIMES, COOP WITH ASSESSMENT
--- NOTE | 2017-09-02 23:26 | NUR ---
PT WALKING HALLWAYS AT THIS TIME, TELE#[address], PULSE 117 READINGS STILL IN AFLUTTER. PT NON COMPLIANT WITH POC. DENIES CP OR SOB. CONTINUES TO HAVE MOIST, PRODUCTIVE COUGH OF CLEAR PHLEGM, NO C/O PAIN. ENCOURAGED TO ELEVATED LEGS WHEN SITTING UP. STATED UNDERSTANDING
--- NOTE | 2017-09-03 00:54 | NUR ---
up in chair, no c/o pain
--- NOTE | 2017-09-03 04:12 | NUR ---
Pt had been sleeping til now, walking hallways up and down, no c/o sob or cp, tele#[address], reading of aflutter with multiform pvc's. P75. Back to room, sitting on couch, legs elevated watching tv
--- NOTE | 2017-09-03 05:19 | NUR ---
Pt walking hallways, concerned about not receiveing the second dose of Lasix today due to the fact that he wants to leave earlier as he has an appt at [facility]. to benotified of given Lasix dose earlier.
--- NOTE | 2017-09-03 05:53 | NUR ---
Pt was slept at least 4-6 hours this shift. Has walked hallways up to CCU entrance and back. Showered and it was noted to have sob afterwards, recuperated very easily. NO further c/o chest pain or SOB with exertion since then. Tele#[address], Aflutter and multiform PVC's, Irregular. Room air, clear lungs. 2+ Dependent edema up to mid calves bilat present, pulses patent. has elevated legs when resting. Pt daily weight current weight is 246# at this time. Received a total of 40mg IV Lasix X2 doses yesterday in AM shift. weight loss currently is 0.46#. Voids dark yellow urine. small amounts but QS. Pt concerned about BM's would like Miralax or Pills to make him go, will notify . Pt also would like to have his first Lasix dose early this am and then at 1100 before he gets DC. Wants to be dc'd early as he has an appointment at [facility] tomorrow early in am and due to road conditions wants to be dc'd by noon today. to be notified
--- NOTE | 2017-09-03 06:02 | NUR ---
NURSE NOTIFIED RE BP.
--- NOTE | 2017-09-03 07:00 | NUR ---
BEDSIDE HANDOFF REPORT RECEIVED FROM IMPACT HAMMER OPERATOR RN. PT WALKING IN [place]. DISCUSSED PLAN OF CARE FOR THE DAY. PT DENIES NEEDS AT THIS TIME.
--- NOTE | 2017-09-03 07:22 | NUR ---
DR FERMIN NOTIFIED OF PT WANTING 1600 LASIX DOSE TO BE GIVEN THIS AM AND OF MIRALAX HE HAS A HX OF CONSTIPATION. NEW ORDERS RECEIVED TO GIVE LASIX 40MG IV NOW, 1600 DOSE DC'D. MIRALAX 1 PACKET ORDERED. PT NOTIOFIED
--- NOTE | 2017-09-03 07:43 | NUR ---
JUDY WAS UP IN CHAIR, HE SAID HE SHOWERED LAST NIGHT AND THAT HE WAS GETTING TO GO HOME THIS MORON[place] SO HE IS WAITING FOR HIS PAYCHECK OUT OF HERE.
--- NOTE | 2017-09-03 07:45 | NUR ---
PT SITTING IN CHAIR, EATING BREAKFAST. PT DENIES PAIN, DENIES SOB. PT HR 52 APICAL, PT REFUSING DIGOXIN AND AMIODARONE AT THIS TIME, WOULD LIKE TO DISCUSS MEDICATIONS WITH DR. REYNAGA. PT TOLERATING CARDIAC DIET, BOWEL TONES ACTIVE, MIRALAX GIVEN. PT WITH 2+ EDEMA IN BLE. LUNG SOUNDS CLEAR, ON ROOM AIR. PT UP INDEPENDENT IN ROOM, WALKING IN [place]. PT VOIDING WIHTOUT DIFFICULTY, IV LASIX GIVEN. PT DENIES OTHER NEEDS AT THIS TIME.
--- NOTE | 2017-09-03 09:41 | NUR ---
PT WAS IN BED, DID VITAL SIGNS
[2017-09-03] MEDS ORDERED: AMIODARONE HCL200 MG PO (10:45)
--- NOTE | 2017-09-04 23:46 | EKG ---
[facility] [address] [place] [address] Signed Atrial flutter with variable AV block with premature ventricular or aberrantly conducted complexes Left axis deviation Nonspecific intraventricular block T wave abnormality, consider lateral ischemia Abnormal ECG When compared with ECG of 20-AUG-2017 11:28, ST no longer depressed in Inferior leads Confirmed by BEHZAD REYNAGA MD ([id number]) on 09/04/2017 11:46:31 PM Electronically Signed By: BEHZAD REYNAGA MD 09/04/17 2346 PATIENT NAME: BRAMBILA,EUGENE VANESSA Electrocardiogram DATE OF : 50 PHYSICIAN: BEHZAD REYNAGA MD REPORT #: [id number] REPORT IS CONFIDENTIAL AND NOT TO BE RELEASED WITHOUT AUTHORIZATION
[2017-09-05] MEDS ORDERED: ENTRESTO 24 MG1 EACH PO (11:44)
[2017-10-03] MEDS ORDERED: WARFARIN SODIUM3 MG PO (09:34)
[2017-10-03] MEDS ORDERED: ASPIRIN81 MG PO (09:35)
[2017-10-03] MEDS ORDERED: INSPRA50 MG PO (09:35)
[2017-10-24] MEDS ORDERED: DIGOX125 MCG PO (12:41)
[2018-02-01] MEDS ORDERED: WARFARIN SODIUM3 MG PO (08:34)
== END 2017-09-03 11:12 | disposition home or self-care (01) ==
LOC: ED 09:19 → MS 09:20
PROVIDERS: ADMIT Internal Medicine
DX: I48.92 Unspecified atrial flutter (principal); I50.42 Chronic combined systolic (congestive) and diastolic (congestive) heart failure; I25.10 Atherosclerotic heart disease of native coronary artery without angina pectoris; E78.5 Hyperlipidemia, unspecified; I25.5 Ischemic cardiomyopathy; Z95.0 Presence of cardiac pacemaker; Z88.1 Allergy status to other antibiotic agents; Z88.8 Allergy status to other drugs, medicaments and biological substances; Z79.01 Long term (current) use of anticoagulants; Z79.82 Long term (current) use of aspirin; Z79.899 Other long term (current) drug therapy
CPT/HCPCS: 36415; 80053; 80162; 83880; 84484; 85025; 85610; 93005; 93010; 96374; 96376; 99285; G0378